=== PATIENT | male | born 1935 | race Caucasian/White ===

== ENCOUNTER 2017-08-12 17:01 | Inpatient (IN) | END 2017-08-14 13:07 | disposition home or self-care (01) | DRG 841 ==

== ENCOUNTER 2017-11-21 15:07 | Observation (INO) | END 2017-11-22 14:13 | disposition home or self-care (01) ==

== ENCOUNTER 2018-04-23 11:30 | Inpatient (IN) | END 2018-05-01 16:15 | disposition home or self-care (01) | DRG 501 ==